=== PATIENT | female | born 1990 | race Caucasian/White ===

== ENCOUNTER 2022-12-08 06:18 | Day surgery (SDC) | payer OTHER, SELFPAY ==
[2022-12-08] VITALS (25 sets, daily range): BP systolic 94–125; BP diastolic 59–80; PULSE 80–114; RESP 13–24; TEMP 36.4–37.5; O2SAT 65–99; BMI 29.3
--- NOTE | 2022-12-08 06:43 | CRLHL7_ITS ---
For Patients: As a result of the Cures Act, medical imaging exams and procedure reports are released immediately into your electronic medical record. You may view this report before your referring provider. If you have questions, please contact your health care provider. INDICATION: Tonsillar abscess with strep infection and increased pain. TECHNIQUE: CT soft tissue of the neck was acquired with 79 cc Isovue 370 IV contrast. COMPARISON: None. FINDINGS: Skull base: Unremarkable. Pharynx/Larynx/Trachea: Epiglottis is normal. A prominent right tonsillar abscess measures 2.5 x 1.7 x 1.5 cm. This is having moderate mass effect on the airway. Salivary glands: Unremarkable. Thyroid gland: Unremarkable. No significant nodules. Lymph nodes: Moderate reactive lymphadenopathy. Vessels: Unremarkable for age. Bones: Unremarkable for age. Misc: No inflammation, mass or fluid collection. Lung apices: Unremarkable. IMPRESSION: Prominent right tonsillar abscess measuring 2.5 x 1.7 x 1.5 cm with moderate mass effect on the airway. Please note that all CT scans at this facility use dose modulation, iterative reconstruction, and/or weight-based dosing when appropriate to reduce radiation dose to as low as reasonably achievable. Dictated by Bhupendra Khalil MD @ 12/08/2022 7:34:08 AM (Electronically Signed)
[2022-12-08] MEDS: 0.9 % SODIUM CHLORIDE 1000 ml 1,000 ML IV (06:50)
[2022-12-08] MEDS: METHYLPREDNISOLONE SOD SUCC 62.5 MG/ML (125) 93.75 MG IVP (06:51)
[2022-12-08] MEDS: HYDROmorphone 0.5 mg/0.5 ml inj IVP (06:52)
[2022-12-08 07:02] LABS: Basophils Absolute Auto 0.01 K/uL (0.00-0.30); Basophils Percent Auto 0.1 % (0.0-3.0); Eosinophils Absolute Auto 0.04 K/uL (0.00-0.50); Eosinophils Percent Auto 0.5 % (0.0-7.0); Hematocrit 40.8 % (33.0-51.0); Hemoglobin* 13.8 gm/dL (12.0-16.0); Immature Granulocytes Abs Auto 0.01 K/uL (0.00-0.30); Immature Granulocytes Pct Auto 0.1 %; Lymphocytes Percent Auto 14.7 % (20-44); Mean Corpuscular HGB Conc 34 gm/dL (32-36); Mean Corpuscular Hemoglobin 30 pg (26-34); Mean Corpuscular Volume 88 fL (80-100); Monocytes Percent Auto 7.6 % (0.0-11.0); Platelet Count* 263 K/uL (140-440); RDW Coefficient of Variation % 12.4 % (11.5-15.5); Red Blood Count 4.65 m/uL (4.00-5.20); White Blood Count* 8.25 K/uL (4.50-11.00)
[2022-12-08 07:04] LABS: Slide Review Reflex No
[2022-12-08 07:16] LABS: Chloride* 106 mmol/L (96-114); Potassium* 3.9 mmol/L (3.6-5.1); Sodium* 137 mmol/L (135-149)
[2022-12-08 07:19] LABS: Creatinine* 0.5 mg/dL (0.5-1.5); Est. Creatinine Clearance* 127.76; Estimated Glomerular Filt Rate 128 ml/min
[2022-12-08 07:20] LABS: Blood Urea Nitrogen* 13 mg/dL (5-24); Carbon Dioxide* 23 mmol/L (20-32); Glucose* 97 mg/dL (60-115)
[2022-12-08 07:35] LABS: C Reactive Protein* 13.7 mg/dL (0.5-1.0)
--- NOTE | 2022-12-08 07:47 | ED.GENADULT ---
HPI - General Adult General Chief complaint: Sore Throat Stated complaint: has strep with worsen symptoms and pain Time Seen by Provider: 12/08/22 06:30 History of Present Illness HPI narrative: 32-year-old woman here with a complaint of increasing sore throat particularly right-sided radiating up into her ears. This is day 3 of penicillin for diagnosed strep pharyngitis. She has been taking acetaminophen for the pain is just not cutting it. Says she can not eat or drink anything. No noted fever. No rashes. Says she has had strep numerous times but never felt like this. Did not feel like she was choking necessarily when lying flat but much more pain if putting pressure on her right neck therefore lying on her right side was something she tried to avoid. Related Data Home Medications Medication Instructions Recorded Confirmed penicillin V potassium 500 mg 500 mg PO BID 12/08/22 12/08/22 tablet Allergies Allergy/AdvReac Type Severity Reaction Status Date / Time No Known Drug Allergies Allergy Verified 12/08/22 06:30 Review of Systems Status of ROS: Reports: 6 or more systems reviewed and unremarkable except as noted in History and below [facility] Medical History No significant past medical history Surgical History No significant past surgical history Social History Smoking Status: Never smoker Do you use any of these nicotine containing products: None Second hand tobacco smoke exposure: No How often do you have a drink containing alcohol: never How often do you have six or more drinks on one occasion: Never AUDIT-C Alcohol total score: 0 Non-prescribed substance use: denies use Exam Narrative: Exam Narrative: Pleasant. NAD. Hot potato voice. Demonstrating some trismus. Managing secretions. There is no stridor. Lungs appear to be clear. Heart is in regular rhythm tachycardic. Neck is rather sore to palpation in the right upper anterior cervical deck. Her TMs bilaterally are clear. Oropharynx is moist. There is erythema posteriorly and clear asymmetry, swelling of the right-sided soft palate. Uvula is not edematous. Last had sips of water or Pedialyte around 4:00 a.m. last food intake was some soup yesterday evening. Const: Vital Signs, click to edit/add: Vital Signs - 24 hr 12/08/22 06:26 12/08/22 06:55 12/08/22 07:01 Temperature 98.0 F Pulse Rate 99 Pulse Rate [Right Pulse Oximeter] 110 H Respiratory Rate 18 16 Blood Pressure 125/74 Blood Pressure [Ri ght Upper Arm] 110/69 Pulse Oximetry 98 99 97 Oxygen Delivery Me thod Room Air Documenting provider has reviewed patient's vital signs: yes Course Vital Signs Vital signs: Initial Vital Signs Temperature 98.0 F 12/08/22 06:26 Temperature Source Temporal Artery Scan 12/08/22 06:26 Pulse Rate 110 H 12/08/22 06:26 Respiratory Rate 18 12/08/22 06:26 Blood Pressure 110/69 12/08/22 06:26 Blood Pressure Mean 82 12/08/22 06:26 Blood Pressure Position Sitting 12/08/22 06:26 Pulse Oximetry 98 12/08/22 06:26 Oxygen Delivery Method 12/08/22 06:26 Vital Signs Temperature 98.0 F 12/08/22 06:26 Pulse Rate 110 H 12/08/22 06:26 Respiratory Rate 18 12/08/22 06:26 Blood Pressure 110/69 12/08/22 06:26 Pulse Oximetry 98 12/08/22 06:26 Oxygen Delivery Method 12/08/22 06:26 Temperature 98.0 F 12/08/22 06:26 Pulse Rate 99 12/08/22 07:01 Respiratory Rate 16 12/08/22 07:01 Blood Pressure 125/74 12/08/22 07:01 Pulse Oximetry 97 12/08/22 07:01 Oxygen Delivery Method 12/08/22 06:26 Medical Decision Making MDM Narrative Medical decision making narrative: Does appear to have tonsillar or peritonsillar abscess. We have placed IV for fluids. Ordered for Dilaudid, Solu-Medrol. IV contrasted CT of the neck by my read shows a right-sided abscess. Radiology over-read as below IMPRESSION: Prominent right tonsillar abscess measuring 2.5 x 1.7 x 1.5 cm with moderate mass effect on the airway. I would anticipate surgical intervention will be contacting our Ear Nose and Throat provider. On reassessment is swallowing more easily. Feels like her pain is about half and much more tolerable. Dr. Goldberg ENT arriving soon. I would consider Ms. Fine of low risk for surgery. Lab Data Lab results reviewed: Yes I reviewed the patient's lab results Labs: Lab Results 12/08/22 12/08/22 Range/Units 06:50 06:50 WBC 8.25 (4.50-11.00) K/uL RBC 4.65 (4.00-5.20) m/uL Hgb 13.8 (12.0-16.0) gm/dL Hct 40.8 (33.0-51.0) % MCV 88 (80-100) fL MCH 30 (26-34) pg MCHC 34 (32-36) gm/dL RDW Coeff of Joaquin 12.4 (11.5-15.5) % Plt Count 263 (140-440) K/uL Neut % (Auto) 77.0 H (42.0-72.0) % Lymph % (Auto) 14.7 L (20-44) % Iron % (Auto) 7.6 (0.0-11.0) % Eos % (Auto) 0.5 (0.0-7.0) % Baso % (Auto) 0.1 (0.0-3.0) % Neut # (Auto) 6.40 (1.7-7.0) K/uL Lymph # (Auto) 1.20 (0.90-2.90) K/uL Iron # (Auto) 0.60 (0.00-0.90) K/UL Eos # (Auto) 0.04 (0.00-0.50) K/uL Baso # (Auto) 0.01 (0.00-0.30) K/uL Sodium 137 (135-149) mmol/L Potassium 3.9 (3.6-5.1) mmol/L Chloride 106 (96-114) mmol/L Carbon Dioxide 23 (20-32) mmol/L BUN 13 (5-24) mg/dL Creatinine 0.5 (0.5-1.5) mg/dL Estimated Creat Clear 127.76 Estimated GFR 128 ml/min Glucose 97 (60-115) mg/dL Calcium 9.0 (8.4-10.6) mg/dL C-Reactive Protein 13.7 H (0.5-1.0) mg/dL Discharge Plan Discharge Clinical Impression: Tonsillar abscess
[2022-12-08] MEDS: AMPICILLIN/SULBACTAM 3 GM in 0.9 % SODIUM CHLORIDE Mini-bag 100 ML IVPB (08:41)
[2022-12-08 09:14] LABS: SARS PCR* Negative SARS-CoV-2 (Negative)
--- NOTE | 2022-12-08 09:28 | W.PM.ENTCN ---
HPI- ENT Consult Date of Consult Time Seen by Provider: 09:00 Date Seen: 12/08/22 Consult date: 12/08/22 Requesting Physician: Other Primary Care Provider: Not a Local Provider Consult Narrative Reason for consult: Right peritonsillar abscess Narrative: Cristiana Fine is a 32 year old female several day history of sore throat. Was seen in the ER today with trismus. CT scan revealed a 2.5 cm right peritonsillar abscess. There was moderate airway impingement. She does complain of trismus dysphagia odynophagia but no airway distress. She is currently on Pen-VK PFSH PFSH Medical History No significant past medical history Surgical History No significant past surgical history Social History Smoking Status: Never smoker Do you use any of these nicotine containing products: None Second hand tobacco smoke exposure: No How often do you have a drink containing alcohol: never How often do you have six or more drinks on one occasion: Never AUDIT-C Alcohol total score: 0 Non-prescribed substance use: denies use Meds Home Medications and Allergies Allergies Allergy/AdvReac Type Severity Reaction Status Date / Time No Known Drug Allergies Allergy Verified 12/08/22 06:30 Exam Narrative: Exam Narrative: General skin neuro respiratory gait peripheral vascular vocal quality skin of the neck are negative. Oral cavity oropharynx reveals pulled right superior peritonsillar space with normal hypopharynx larynx. Neck parotid thyroid shotty adenopathy on the right Const: Vital Signs, click to edit/add: Vital Signs - 24 hr 12/08/22 06:26 12/08/22 06:55 12/08/22 07:01 Temperature 98.0 F Pulse Rate 99 Pulse Rate [Right Pulse Oximeter] 110 H Respiratory Rate 18 16 Blood Pressure 125/74 Blood Pressure [Ri ght Upper Arm] 110/69 Pulse Oximetry 98 99 97 Oxygen Delivery Me thod Room Air 12/08/22 07:02 12/08/22 07:30 12/08/22 07:31 Temperature Pulse Rate 104 H 93 91 Pulse Rate [Right Pulse Oximeter] Respiratory Rate Blood Pressure 118/72 114/69 Blood Pressure [Ri ght Upper Arm] Pulse Oximetry 97 98 99 Oxygen Delivery Me thod 12/08/22 08:00 12/08/22 08:02 12/08/22 08:30 Temperature Pulse Rate 98 101 H 110 H Pulse Rate [Right Pulse Oximeter] Respiratory Rate Blood Pressure 123/78 Blood Pressure [Ri ght Upper Arm] Pulse Oximetry 99 98 98 Oxygen Delivery Me thod 12/08/22 08:32 12/08/22 09:00 12/08/22 09:02 Temperature Pulse Rate 95 106 H 114 H Pulse Rate [Right Pulse Oximeter] Respiratory Rate Blood Pressure 125/80 115/69 Blood Pressure [Ri ght Upper Arm] Pulse Oximetry 97 97 97 Oxygen Delivery Me thod ENT-CN: Result Labs Labs: Short CBC 12/08/22 Range/Units 06:50 WBC 8.25 (4.50-11.00) K/uL Hgb 13.8 (12.0-16.0) gm/dL Hct 40.8 (33.0-51.0) % Plt Count 263 (140-440) K/uL BMP 12/08/22 06:50 Sodium 137 Potassium 3.9 Chloride 106 Carbon Dioxide 23 BUN 13 Creatinine 0.5 Glucose 97 Calcium 9.0 Assessment and Plan Assessment and plan (1) Tonsillar abscess: Status: Acute Plan 2.5 cm right peritonsillar abscess with associated trismus dysphagia and odynophagia. Per CT report moderate airway compromise. Options were reviewed with patient including observation which I would not recommend versus incision and drainage in the operating room. Risks including anesthesia recurrence bleeding failure to achieve desired results et cetera were all reviewed. She understands wishes to proceed
--- NOTE | 2022-12-08 09:30 | W.PM.ENTPROC ---
Procedure Note Date of procedure: 12/08/22 Procedure: Preoperative diagnosis right peritonsillar abscess Postoperative diagnosis same Procedure incision drainage right peritonsillar abscess Under general trach anesthesia patient was prepped and draped in usual fashion. The McIvor mouth gag was inserted the tongue retracted forward. She does not open well but is able to obtain adequate visualization. The needlepoint cautery was use to make an incision just above the right junction of anterior posterior tonsil pillars. The abscess was immediately encountered. A culture was obtained. A blunt dissection was used to open the abscess cavity and approximately 8 mL of purulent material was removed. The cavity was then copiously irrigated with normal saline. Bleeding was controlled with Coblation. The patient was extubated in the operating room taken recovery in satisfactory condition. Blood loss during procedure less than 10 mL. Complications 0. Surgeon: Matty Goldberg MD
--- NOTE | 2022-12-08 09:38 | P.ANES_ITS ---
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
--- NOTE | 2022-12-08 10:14 | SUR.PHASEI ---
patient met discharge criteria per anesthesia
--- NOTE | 2022-12-08 16:09 | PC.NURSE ---
Pt arrived on ER cart for med/surg bed 259 s/p OR for peritonsillar abcess with Dr. Goldberg. Please see initial assessment from PACU and frequent post op VS. Pt rating her pain 4 out of 10 on arrival to floor at 10:06 am. Pt stated her pain was 10 out of 10 when she arrived in the ER, so this is manageable. RN viewed back of throat, no bleeding or drainage noted, cauterization black kalin apparent on anterior right tonsil. Pt tolerated applejuice, tapioca, oral pain med, ice water and ice chips. Spouse Yuan present and supportive at bedside. IV to SL after pt voided 850cc in clear yellow urine, UAL in room w/o dizziness. No difficulty swallowing, breathing, talking or handling of secretions. Pt and spouse Yuan verbalized understanding of d/c diagnosis, new prescriptions, medication side effects, pain management plan, f/up appt to be set up for Weds with Dr. Goldberg and symptoms to report urgently to physician. Ambulatory d/c to own home with personal belongings accompanied by her Yuan @ 1428 pm.
== END 2022-12-08 14:28 | disposition home or self-care (01) ==
LOC: ED 07:06 → SS 08:26 → MEDSURG 10:15
PROVIDERS: Emergency Provider Family Medicine; Visit Provider Otolaryngology
PROC: 0C9PXZZ Drainage of Tonsils, External Approach (ICD-10-PCS; CPT 42700; principal; 2022-12-08 09:00)
DX: J36 Peritonsillar abscess (principal); R13.10 Dysphagia, unspecified
CPT/HCPCS: 42700; 00170; 36415; 70491; 80048; 85025; 86140; 87070; 87075; 87077; 87205; 87635; 94761; 99140; 99284; A9270; J0295; J0330; J1100; J1170; J2250; J2405; J2704; J2930; J3010; J7030; Q9967

== ENCOUNTER 2023-01-01 08:20 | Outpatient (CLI) | payer OTHER, SELFPAY | END 2023-01-01 08:21 | disposition home or self-care (01) | LOC: LKVREF 08:21 | PROVIDERS: Visit Provider Emergency Medicine | DX: Z01.818 Encounter for other preprocedural examination (principal) | CPT/HCPCS: 80048 ==

== ENCOUNTER 2023-01-10 08:13 | Day surgery (SDC) | payer OTHER, SELFPAY ==
[2023-01-10] VITALS (13 sets, daily range): BP systolic 85–112; BP diastolic 45–68; PULSE 57–95; RESP 16–20; TEMP 36.2–36.7; O2SAT 94–100; BMI 29.0
[2023-01-10 08:40] LABS: Ur HCG Qualitative* Negative (Negative)
[2023-01-10] MEDS: LACTATED RINGERS 1000 ML 1,000 ML 100 ML IV (08:40)
[2023-01-10] MEDS: SODIUM CHLORIDE 0.9 % (FLUSH) 10 ML SYRINGE IVF (08:40)
--- NOTE | 2023-01-10 08:40 | SUR.PREOP ---
HOME COVID NEGATIVE.
--- NOTE | 2023-01-10 09:31 | W.PM.ENTPROC ---
Procedure Note Date of procedure: 01/10/23 Procedure: Preoperative diagnosis chronic tonsillitis history of peritonsillar abscess Postoperative diagnosis same Procedure tonsillectomy Under general endotracheal anesthesia patient was prepped draped usual fashion. The McIvor mouth gag was inserted the tongue retracted forward. The right left tonsil were removed with a combination of needlepoint and Coblation. There was no significant nasopharyngeal tonsil tissue. The lower 2 mm of the uvula were amputated to prevent swelling as it was markedly elongated. The patient was explained the operating room taken recovery in satisfactory condition. Blood loss less than 10 mL. Surgeon: Matty Goldberg MD
--- NOTE | 2023-01-10 09:40 | W.ANESCHARGE ---
Anesthesia Charges Start Date/Time Anesthesia Start Date: 01/10/23 Anesthesia Start Time: 08:59 Stop Date/Time Anesthesia Stop Date: 01/10/23 Anesthesia Stop Time: 09:40
[2023-01-10] MEDS: fentaNYL 100 MCG/2 ML inj 50 MCG IVP ×2 (09:54→10:01)
[2023-01-10] MEDS: OXYCODONE 1 MG/ML ORAL SOLN 5 MG PO (10:38)
== END 2023-01-10 11:40 | disposition home or self-care (01) ==
PROVIDERS: Nurse Anesthetist, Certified Registered; PCP Emergency Medicine; Visit Provider Otolaryngology
PROC: (CPT 42821; principal; 2023-01-10 09:30)
DX: J35.01 Chronic tonsillitis (principal)
CPT/HCPCS: 42821; 00170; 81025; 84703; 88304; A9270; J0330; J1100; J2250; J2405; J2704; J3010; J7120

== ENCOUNTER 2023-01-12 20:09 | Emergency (ER) | payer OTHER, SELFPAY ==
[2023-01-12] VITALS (8 sets, daily range): BP systolic 102–113; BP diastolic 57–74; PULSE 89–115; RESP 16–18; TEMP 38.2; O2SAT 97–99; BMI 28.3
[2023-01-12] MEDS: 0.9 % SODIUM CHLORIDE 1000 ml 1,000 ML IV (20:20)
[2023-01-12] MEDS: LACTATED RINGERS 1000 ML 1,000 ML IV (21:07)
[2023-01-12] MEDS: OXYCODONE 1 MG/ML ORAL SOLN 10 MG PO (21:23)
--- NOTE | 2023-01-12 22:23 | ED_ITS ---
HPI - General Adult General Chief complaint: Post Op Complication Stated complaint: Post-op throat pain, dehydration, low O2 Time Seen by Provider: 01/12/23 20:28 Source: patient and family Mode of arrival: ambulatory Limitations: no limitations History of Present Illness HPI narrative: 32-year-old female with a history of peritonsillar abscess that was drained a few weeks ago, ultimately underwent tonsillectomy 2 days ago for definitive management. Patient reports that the pain in her throat is severe, she has not been able to eat or drink for the past couple of days since discharge. She has been sleeping a lot is and has gotten behind on her Tylenol and ibuprofen. She reports that she did try taking the more aggressively today at 1:00 p.m. and 5:00 p.m. but is still in significant pain. She has tried taking her Oxy co tone as well. She started running a fever this evening, called the nurse triage line and her Apple watch told her that her heart rate was high, they recommended she be evaluated. There has been no nausea or vomiting. She has a very poor appetite. Urination is decreased. Admits to very poor fluid intake. No diarrhea. No altered mental status, breathing difficulty or chest pain. She feels very fatigued and dehydrated. Pain is bilateral in the back of the throat, surgical area, no dental or tongue pain. Does have some pain radiating into the ears. Past medical history she states is benign, denies major long-term health problems. She is currently on her period and had a negative test 2 days ago for surgery. She takes no long-term medications. Socially she is a nonsmoker, denies any alcohol intake. ROS is notable for the generalized and HEENT symptoms as above, otherwise denies times 12 systems. Related Data Previous Rx's Medication Instructions Recorded ondansetron 4 mg disintegrating 4 mg PO Q8H #10 tabs 01/10/23 tablet oxycodone 5 mg/5 mL oral solution 7 mg (7 mL) PO Q4-6H PRN pain #280 01/10/23 mL amoxicillin 600 mg-potassium 6 ml PO BID 5 days #60 mL 01/12/23 clavulanate 42.9 mg/5 mL oral suspension (Augmentin ES-) Allergies Allergy/AdvReac Type Severity Reaction Status Date / Time No Known Drug Allergies Allergy Verified 01/01/23 07:55 PFSH [facility] Medical History Dysuria ?R30.0 - Dysuria (ICD-10) Gluten intolerance ?K90.41 - Non-celiac gluten sensitivity (ICD-10) Migraine ?G43.909 - Migraine, unspecified, not intractable, without status migrainosus (ICD-10) No significant past medical history Pre-op exam ?Z01.818 - Encounter for other preprocedural examination (ICD-10) Surgical History H/O peritonsillar abscess drainage ?Z98.890 - Other specified postprocedural states (ICD-10) History of tonsillectomy ?Z90.89 - Acquired absence of other organs (ICD-10) No significant past surgical history Family History Father High blood pressure High cholesterol Social History Smoking Status: Never smoker Do you use any of these nicotine containing products: None Second hand tobacco smoke exposure: No How often do you have a drink containing alcohol: never How often do you have six or more drinks on one occasion: Never AUDIT-C Alcohol total score: 0 Non-prescribed substance use: denies use Caffeine: No Are you using contraception or practicing any form of control: No Exam Const: Vital Signs, click to edit/add: Vital Signs - 24 hr 01/12/23 20:28 01/12/23 20:30 01/12/23 21:01 Temperature 100.7 F H Pulse Rate 105 H Pulse Rate [Right Pulse Oximeter] 115 H Respiratory Rate 18 16 Blood Pressure 102/57 L Blood Pressure [Ri ght Upper Arm] 113/73 Pulse Oximetry 97 97 97 Oxygen Delivery Me thod Room Air 01/12/23 21:32 01/12/23 21:30 01/12/23 21:31 Temperature Pulse Rate 95 93 Pulse Rate [Right Pulse Oximeter] 94 Respiratory Rate 18 16 16 Blood Pressure 108/74 104/60 Blood Pressure [Ri ght Upper Arm] 108/74 Pulse Oximetry 99 98 98 Oxygen Delivery Me thod Room Air 01/12/23 22:02 01/12/23 22:12 Temperature 100.7 F H Pulse Rate 89 Pulse Rate [Right Pulse Oximeter] 94 Respiratory Rate 16 16 Blood Pressure 102/62 Blood Pressure [Ri ght Upper Arm] 108/74 Pulse Oximetry 98 Oxygen Delivery Me thod Documenting provider has reviewed patient's vital signs: yes Common normals: no apparent distress General appearance: cooperative and well kempt Other: Hot potato voice but no breathing difficulty. HENMT: Common normals: normocephalic and TM's normal bilaterally Head and scalp: normocephalic Face and sinus: normal facial exam Tympanic membrane: TM's normal bilaterally Other: Typical cauterized postsurgical changes of the pharyngeal arches but no significant swelling, redness, tongue abnormality, dental abnormality etc.. Membranes do appear moist. There is no bleeding. Eye: Common normals: conjunctivae normal General eye: normal appearance of both eyes Conjunctiva: conjunctiva(e) normal Neck & C-Spine: Common normals: full ROM and no lymphadenopathy Resp: Common normals: normal respiratory effort, no use of accessory muscles and clear to auscultation bilaterally Effort & inspection: able to speak in complete sentences Auscultation: clear to auscultation bilaterally Cardio: Common normals: regular rate, regular rhythm, S1 normal heart sound, S2 normal heart sound and no murmurs Rate: regular rate Rhythm: regular rhythm Heart sounds: S1 normal and S2 normal Extremity: Common normals: no pedal edema Neuro: Speech: speech normal Motor exam: strength 5/5 throughout, no tremor noted and no movement abnormalities noted Psych: Appearance: well kempt Attitude: engaged Activity/motor behavior: appropriate eye contact Insight: insight good Judgement: judgment good Skin: Common normals: no rashes or lesions noted General skin exam: no rashes or lesions noted Course Vital Signs Vital signs: Initial Vital Signs Temperature 100.7 F H 01/12/23 20:28 Temperature Source Oral 01/12/23 20:28 Pulse Rate 115 H 01/12/23 20:28 Respiratory Rate 18 01/12/23 20:28 Blood Pressure 113/73 01/12/23 20:28 Blood Pressure Mean 86 01/12/23 20:28 Blood Pressure Position Sitting 01/12/23 20:28 Pulse Oximetry 97 01/12/23 20:28 Oxygen Delivery Method Room Air 01/12/23 20:28 Vital Signs Temperature 100.7 F H 01/12/23 20:28 Pulse Rate 115 H 01/12/23 20:28 Respiratory Rate 18 01/12/23 20:28 Blood Pressure 113/73 01/12/23 20:28 Pulse Oximetry 97 01/12/23 20:28 Oxygen Delivery Method Room Air 01/12/23 20:28 Temperature 100.7 F H 01/12/23 22:12 Pulse Rate 94 01/12/23 22:12 Respiratory Rate 16 01/12/23 22:12 Blood Pressure 108/74 01/12/23 22:12 Pulse Oximetry 98 01/12/23 22:02 Oxygen Delivery Method Room Air 01/12/23 21:32 Medical Decision Making MDM Narrative Medical decision making narrative: Postoperative fever with poor oral intake and dehydration post tonsillectomy. I did speak with Dr. Goldberg because of the fever, he recommended starting Augmentin. This is done. She received a L of normal saline and then a L of LR. We elected not to labs. She was given 10 mg of oral oxycodone and felt much better. With this she was able to take liquids without significant difficulty. We discussed ongoing plan for pain control. She will update Dr. Goldberg in the morning with her progress. She will continue on the Augmentin for 10 days, given the bottle that was initially started here and then will continue on additional supply sent to pharmacy. Counseled on Tylenol, ibuprofen per the instructions previously given and also gave permission to increase the oxycodone up to 10 mg per dose if needed since she tolerated this well for us. She verbalizes understanding and agreement. Discharge Plan Discharge Clinical Impression: Acute dehydration, Post-tonsillectomy pain Patient Disposition: Home w/ Parent or Adult Condition: Improved Instructions: Pain Management After Surgery (DC) Additional Instructions: I suspect that your symptoms were mainly caused by dehydration and poor pain control. You have received 2 L of fluid. I did speak with Dr. Goldberg and he was concerned about the possibility of infection because of your fever. We have started you on Augmentin, a common antibiotic. It can cause some loose stools. The pain meds tend to be constipating so hopefully this will balance out for you. You will take the antibiotic 2 times daily for the next 10 days. I have sent an additional prescription for another bottle to your pharmacy as the supplied that will be given in the ED will not quite cover the full [address] Goldberg in the morning with an update. Any advice that he gives supersedes my advice. Prioritize pushing fluids. A sign that you are hydrated enough is that your urinating at a minimum every 4 hours while you are awake. For pain control, follow the instructions that were given to you by Dr. Goldberg. Prioritize ibuprofen and Tylenol, make sure that your Diamond out those doses. Set an alarm to take those medications for the next couple of days. If the pain is still bothersome with those interventions, you may take your oxycodone. As we discussed, you tolerated 10 mg fine here, you may increase up to 10 mg every 4 hours as needed for pain at home. Activity Level: No strenuous activity Discharge Diet: Regular Prescriptions: New amoxicillin-pot clavulanate [Augmentin ES-600] 600-42.9 mg/5 mL suspension for reconstitution 6 ml PO BID 5 Days Qty: 60 0RF Rx Instructions: Additional supply to accompany bottle given in the ED to complete 10 day course No Action oxycodone 5 mg/5 mL solution 7 mg PO Q4-6H PRN (Reason: pain) Qty: 280 0RF ondansetron 4 mg tablet,disintegrating 4 mg PO Q8H Qty: 10 1RF Follow Up/Referrals: Ro Lucio MD [Primary Care Provider] - Stand Alone Forms: [employer] Info Instructions
== END 2023-01-12 22:13 | disposition home or self-care (01) ==
PROVIDERS: Emergency Provider Family Medicine; PCP Emergency Medicine
DX: R50.82 Postprocedural fever (principal); E86.0 Dehydration
CPT/HCPCS: 94761; 96374; 99283; 99284; A9270; J7030; J7120

== ENCOUNTER 2023-05-02 08:41 | Outpatient (CLI) | payer OTHER, SELFPAY ==
[2023-05-04 14:13] LABS: HSV 1 Subtype by PCR Not Detected; HSV 2 Subtype by PCR Not Detected; Herpes Simplex Subtype Source Swab
== END 2023-05-02 08:42 | disposition home or self-care (01) ==
PROVIDERS: PCP Emergency Medicine; Visit Provider Obstetrics & Gynecology
DX: Z01.419 Encounter for gynecological examination (general) (routine) without abnormal findings (principal); N92.6 Irregular menstruation, unspecified; N94.9 Unspecified condition associated with female genital organs and menstrual cycle; Z13.6 Encounter for screening for cardiovascular disorders; Z13.1 Encounter for screening for diabetes mellitus
CPT/HCPCS: 80061; 84146; 84270; 84402; 84403; 84443; 87529

== ENCOUNTER 2023-05-23 12:13 | Outpatient (CLI) | payer OTHER, SELFPAY | END 2023-05-23 12:14 | disposition home or self-care (01) | PROVIDERS: PCP Emergency Medicine; Visit Provider Obstetrics & Gynecology | DX: N94.9 Unspecified condition associated with female genital organs and menstrual cycle (principal) | CPT/HCPCS: 86694 ==

== ENCOUNTER 2024-05-17 09:01 | Outpatient (CLI) | payer OTHER, SELFPAY ==
--- OUTSIDE RECORDS SUMMARY | 2024-05-17 09:04 | XMS_ITS | Clinical Summary ---
Author Organization [facility] Address [facility] [place] [address] Care Team Providers Care Import Manager Name Role Phone No Ref-Primary, Physician Primary Care Provider [facility] Unavailable Allergies No known active allergies Medications Medication Sig Dispensed Refills Start Date End Date Status pantoprazole (PROTONIX) 40 MG EC tabletIndications:Eso phageal dysphagia Take 1 tablet (40 mg) by mouth daily 20 tablet 1 05/01/2021 Active sucralfate (CARAFATE) 1 GM tabletIndications:Eso phageal dysphagia Take 1 tablet (1 g) by mouth 4 times daily (before meals and nightly) 30 tablet 1 05/01/2021 Active Immunizations Name Administration Dates Next Due COVID-19 Monovalent 18+ (Moderna) 11/10/2020 DTaP, Unspecified 10/04/2012 Family History Medical History Relation Comments Heart Disease Brother Relation Status Comments Brother Father Alive Maternal Grandfather Alive Maternal Grandmother Alive Mother Alive Paternal Grandfather Alive Paternal Grandmother Alive Social History Tobacco Use Types Packs/Day Years Used Date Smoking Tobacco: Never Smokeless Tobacco: Never Tobacco Cessation:Counseling Given: No Alcohol Use Standard Drinks/Week Comments Yes 0 (1 standard drink = 0.6 oz pur e alcohol) minimal PHQ-2 Answer Date Recorded PHQ-2 Score 0 05/01/2021 Adolescent Education Answer Date Record ed Getting School Help Needed Not on file 06/28 Sex and Gender Information Value Date Recorded Sex Assigned at Not on file Gender Identity Not on file Sexual Orientation Not on file Last Filed Vital Signs Vital Sign Reading Time Taken Comments Blood Pressure 104/72 05/01/2021 1:30 PM CDT Pulse 123 05/01/2021 1:30 PM CDT Temperature 37 ??C (98.6 ??F) 05/01/2021 1:30 PM CDT Respiratory Rate 18 05/01/2021 1:30 PM CDT Oxygen Saturation 98% 05/01/2021 1:30 PM CDT Inhaled Oxygen Concentration - - Weight 73.5 kg (162 lb) 05/01/2021 1:30 PM CDT Height 160 cm (5' 3) 05/01/2021 1:30 PM CDT Body Mass Index 28.7 05/01/2021 1:30 PM CDT Plan of Treatment Health Maintenance Due Date Last Done Comments ADVANCE CARE PLANNING 1990 ANNUAL REVIEW OF HM ORDERS 1990 YEARLY PREVENTIVE VISIT 1990 HIV SCREENING 2005 HEPATITIS C SCREENING 2008 HEPATITIS B IMMUNIZATION (1 of 3 - 19+ 3-dose series) 2009 PAP 2011 DTAP/TDAP/TD IMMUNIZATION (2 - Tdap) 10/04/2022 10/04/2012 COVID-19 Vaccine (3 - 2022-2 4 season) 2023 12/08/2020, 11/10/2020 PHQ-2 (once per calendar year) 2023 05/01/2021, 05/01/2021 INFLUENZA VACCINE (#1) 2024 HPV IMMUNIZATION Aged Out No longer e ligible based on patient's age to complete this topic IPV IMMUNIZATION Aged Out No longer e ligible based on patient's age to complete this topic MENINGITIS IMMUNIZATION Aged Out No l onger eligible based on patient's age to complete this topic Pneumococcal Vaccine: Pediatrics (0 to 5 Years) and At-Risk Patients (6 to 64 Years) Aged Out No longer eligible b ased on patient's age to complete this topic RSV MONOCLONAL ANTIBODY Aged Out No l onger eligible based on patient's age to complete this topic Care Teams Import Manager Relationship Specialty Start Date End Date No Ref-Primary, Physician PCP - General 04/30/21 [place] [address] Assigned PCP 10/30/23
--- OUTSIDE RECORDS SUMMARY | 2024-05-17 09:04 | XMS_ITS | Referral Summary ---
Author Organization [facility] Address [address] [place] [address] Care Team Providers Care Ditto Machine Operator Name Role Phone No Ref-Primary, Physician Primary Care Provider [facility] Unavailable Allergies No known active allergies Medications [...] Monovalent 18+ (Moderna) 11/10/2020 DTaP, Unspecified 10/04/2012 Social History Tobacco Use Types Packs/Day Years [...] 05/01/2021 1:30 PM CDT Plan of Treatment Not on file Care Teams Ditto Machine Operator Relationship Specialty Start Date End Date No Ref-Primary, Physician PCP - General 04/30/21 [facility] - [address] [address] Assigned PCP 10/30/23
== END 2024-05-17 09:02 | disposition home or self-care (01) ==
PROVIDERS: PCP Emergency Medicine; Visit Provider Obstetrics & Gynecology
DX: E78.00 Pure hypercholesterolemia, unspecified (principal); R63.5 Abnormal weight gain; Z13.29 Encounter for screening for other suspected endocrine disorder
CPT/HCPCS: 80061; 84443

== ENCOUNTER 2025-06-20 18:15 | Outpatient (CLI) | payer BC, SELFPAY ==
[2025-06-20 20:53] LABS: Chlamydia DNA Amplified* NOT DETECTED (No Detected); GC DNA Amplified* NOT DETECTED (No Detected)
== END 2025-06-20 18:16 | disposition home or self-care (01) ==
PROVIDERS: PCP Family Medicine; Visit Provider Physician Assistant
DX: Z34.91 Encounter for supervision of normal pregnancy, unspecified, first trimester (principal)
CPT/HCPCS: 76817; 83020; 83021; 85660; 86592; 86703; 86704; 86706; 86762; 86787; 86803; 86850; 86900; 86901; 87086; 87340; 87491; 87591

== ENCOUNTER 2025-09-07 12:48 | Outpatient (CLI) | payer BC, SELFPAY | END 2025-09-07 12:49 | disposition home or self-care (01) | LOC: US 12:49 | PROVIDERS: PCP Family Medicine; Visit Provider Obstetrics & Gynecology | DX: O09.522 Supervision of elderly multigravida, second trimester (principal); Z3A.19 19 weeks gestation of pregnancy | CPT/HCPCS: 76811 ==

== ENCOUNTER 2025-09-20 13:46 | Outpatient (CLI) | payer BC, SELFPAY ==
[2025-09-20 20:05] LABS: Bacterial Vaginosis* Negative (Negative); Candida glab/krus NOT DETECTED (No Detected)
== END 2025-09-20 13:47 | disposition home or self-care (01) ==
PROVIDERS: PCP Family Medicine; Visit Provider Obstetrics & Gynecology
DX: N89.8 Other specified noninflammatory disorders of vagina (principal)
CPT/HCPCS: 81513; 87086; 87481; 87661